=== PATIENT | female | born 1990 | race Caucasian/White ===

== ENCOUNTER 2020-02-22 12:02 | Outpatient (REF) | payer OTHER, SELFPAY ==
[2020-02-22 12:38] LABS: COVID-19 Test Negative (Negative); IDNOW Serial# 55D5AD1C
== END 2020-02-22 12:03 | disposition home or self-care (01) ==
LOC: HO.LAB 12:02
PROVIDERS: Visit Provider Internal Medicine
DX: Z20.828 Contact with and (suspected) exposure to other viral communicable diseases (principal)
CPT/HCPCS: 87635; C9803

== ENCOUNTER 2022-03-27 09:31 | Emergency (ER) | payer OTHER, SELFPAY ==
[2022-03-27 09:35] VITALS: BP 128/78; PULSE 63; RESP 16; TEMP 36.7; O2SAT 96; BMI 22.3
--- NOTE | 2022-03-27 10:39 | PC.NURSE ---
PA to bedside for eval, cleared for DC home.
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
== END 2022-03-27 10:58 | disposition home or self-care (01) ==
PROVIDERS: Emergency Provider Student in an Organized Health Care Education/Training Program; PCP Physician Assistant
DX: S00.93XA Contusion of unspecified part of head, initial encounter (principal); S16.1XXA Strain of muscle, fascia and tendon at neck level, initial encounter; V43.52XA Car driver injured in collision with other type car in traffic accident, initial encounter; Y93.89 Activity, other specified; Y92.410 Unspecified street and highway as the place of occurrence of the external cause; Y99.9 Unspecified external cause status
CPT/HCPCS: 99282